=== PATIENT | female | born 1960 | race Caucasian/White ===

== ENCOUNTER 2021-09-03 23:38 | Emergency (ER) | payer OTHER ==
[~2021-09-03] VITALS: Ht 160 cm; Wt 79.4 kg
[2021-09-04] MEDS ORDERED: LORAZEPAM 0.5 MG TABLET ONE (00:41)
[2021-09-04] MEDS ORDERED: ACETAMINOPHEN ES 500 MG TABLET ONE (00:41)
[2021-09-04] MEDS ORDERED: LORAZEPAM 1 MG TABLET PO ONE (01:00)
[2021-09-04] MEDS ORDERED: ACETAMINOPHEN ES 500 MG TABLET PO ONE (01:00)
[2021-09-04 01:17] LABS: BASOPHILS % (AUTO) 0.5 % (0.0-2.0); EOSINOPHILS % (AUTO) 2.7 % (0.0-6.0); HEMATOCRIT 43 % (33-45); HEMOGLOBIN 14.1 g/dL (11.5-14.8); LYMPHOCYTES # (AUTO) 3.2 K/uL (0.8-4.8); LYMPHOCYTES % (AUTO) 52.2 % (20.0-44.0); MEAN CORPUSCULAR HGB CONC 33 g/dl (31.0-36.0); MEAN CORPUSCULAR VOLUME 90 fL (82-100); MONOCYTES # (AUTO) 0.5 K/uL (0.1-1.30); MONOCYTES % (AUTO) 7.8 % (2.0-12.0); NEUTROPHILS # (AUTO) 2.2 K/uL (1.8-8.9); NEUTROPHILS % (AUTO) 36.8 % (43.0-81.0); PLATELET COUNT (AUTO) 239 K/uL (150-450)
[2021-09-04 01:28] LABS: POTASSIUM 4.1 mmol/L (3.5-5.1)
[2021-09-04 01:29] LABS: CALCIUM, SERUM 8.4 mg/dL (8.5-10.1); CREATININE 0.7 mg/dL (0.6-1.3); MAGNESIUM 2.4 mg/dL (1.8-2.4)
[2021-09-04] MEDS ORDERED: ACET-2605 PO (02:29)
[2021-09-04 02:59] VITALS: BP 119/69
== END 2021-09-04 03:00 | disposition home or self-care (01) ==
LOC: ER 23:42
DX: U07.1 COVID-19 (principal); R51.9 Headache, unspecified; I10 Essential (primary) hypertension; E11.9 Type 2 diabetes mellitus without complications
CPT/HCPCS: 36415; 80048; 83735; 85025; 87426; 99283; C9803; A4364